=== PATIENT | female | born 1995 | race Caucasian/White ===

== ENCOUNTER 2019-02-06 22:16 | Emergency (ER) | payer OTHER ==
[~2019-02-06] VITALS: Ht 160 cm; Wt 67.0 kg
[2019-02-07 04:15] VITALS: BP 114/51
== END 2019-02-07 04:20 | disposition home or self-care (01) ==
LOC: ER 23:49
DX: O26.891 Other specified pregnancy related conditions, first trimester (principal); R51 Headache; Z98.890 Other specified postprocedural states; Z3A.01 Less than 8 weeks gestation of pregnancy; V43.92XA Unspecified car occupant injured in collision with other type car in traffic accident, initial encounter; Y93.89 Activity, other specified; Y92.488 Other paved roadways as the place of occurrence of the external cause
CPT/HCPCS: 99281